=== PATIENT | female | born 1950 ===

== ENCOUNTER 2025-08-17 07:17 | Outpatient (CLI) | payer OTHER ==
[~2025-08-17 07:17] MED LIST: COZAAR25 MG; EVISTA60 MG; FOLIC ACID1 MG; GABAPENTIN300 M1; HUMIRA40 MG/0.1; METHOTREXATE2.5 MG; SKELAXIN800 MG; [UNRECOGNIZED DRUG - OTHER]
== END 2025-08-17 07:18 | disposition home or self-care (01) ==
LOC: NUCLEAR 07:17
PROVIDERS: ATTEND Internal Medicine
DX: I20.9 Angina pectoris, unspecified (principal)
CPT/HCPCS: 78452; 93017; A9500